=== PATIENT | female | born 1945 | race Hispanic/Latino ===

== ENCOUNTER 2019-04-05 09:50 | Outpatient (CLI) | payer MEDICARE ==
--- NOTE | 2019-04-07 09:41 | Cat Scan Report ---
PROCEDURE: CT ANGIO NECK TECHNIQUE: CT angiography of the neck performed. 100 cc Omnipaque 350 IV was administered. Axial bijal ges and coronal and sagittal reformatted images were obtained. Rotational MIP reformatted images are also obtained. HISTORY: NECK AND CAROTIDS, OCCLUSION AND STENOSIS OF BILATERAL CAROTID AR COMPARISON: None FINDINGS: There is noncalcified plaque in the right proximal ICA causing up to 70% stenosis. On the left there is calcified and noncalcified plaque involving carotid bulb and proximal ICA. This also causes about 70% stenosis of the carotid bulb region. There is less than 50% stenosis of proxima l left ECA. The left vertebral artery is patent and dominant. The right vertebral artery is not visualized from origin to mid cervical region. Flow is reconstitute d at the level of C4. I cannot exclude segmental vertebral dissection. IMPRESSION: Moderate stenosis involving proximal ICAs, estimated at 70% bilaterally. 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 I cannot exclude vertebral dissection as a cause for this appearance. This document is electronically signed by Viky Wiseman MD., April 07 2019 09:39:37 AM ET
== END 2019-04-05 09:51 | disposition home or self-care (01) ==
LOC: CT 09:50
PROVIDERS: ATTEND Surgery Vascular Surgery
DX: I65.23 Occlusion and stenosis of bilateral carotid arteries (principal); Z87.891 Personal history of nicotine dependence
CPT/HCPCS: 36415; 70498; 82565; 84520; Q9967